=== PATIENT | female | born 1985 | race Caucasian/White ===

== ENCOUNTER 2018-12-11 13:47 | Emergency (ER) | payer BC ==
[2018-12-11 13:56] VITALS: BP 125/83; PULSE 76
--- NOTE | 2018-12-11 14:39 | EDM.PDOC ---
ED HPI GENERAL MEDICAL PROBLEM - General Chief Complaint: Chest Pain Stated Complaint: CHEST PAIN Time Seen by Provider: 12/11/18 13:58 Source of Information: Reports: Patient, RN Notes Reviewed History Limitations: Reports: No Limitations - History of Present Illness INITIAL COMMENTS - FREE TEXT/NARRATIVE: Patient is a 33-year-old female who presents to the ED for the evaluation of left-sided chest pain. The patient notes that this started about 1-1/2 hours ago. She notes this is kind of a dull ache, and rates this at a 5 out of 10. She denies any shortness of breath, and notes it does not get worse with taking deep breaths. She states that she was on vacation this last week, and the same thing happened to her on vacation on and off since last weekend. The patient notes that they had a car ride to [place], for which they were confined to car for long periods of time. She has not tried any Tylenol or ibuprofen for pain relief. She appreciated also that her stomach, and her last weekend. She notes she is not felt this sort of pain before ever. She denies any cardiac or lung history. She states her paternal grandfather of a heart attack in his late 50s. She does not note that the pain radiates. She denies any sort of shoulder injuries. She is not a smoker, and is not on control. Left Chest Pain Score (Numeric/FACES): 5 - Related Data Allergies Allergy/AdvReac Type Severity Reaction Status Date / Time cefaclor [From [facility]] Allergy Rash Verified 12/11/18 13:56 Home Meds: Home Meds . 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 (See Below) - Past Surgical History HEENT Surgical History: Reports: None Social & Family History - Family History Family Medical History: Noncontributory Cardiac: Reports: Other (See Below) : Reports: Other (See Below) Psychiatric: Reports: Bipolar - Tobacco Use Smoking Status *Q: Never Smoker - Caffeine Use Caffeine Use: Reports: None - Recreational Drug Use Recreational Drug Use: No ED ROS GENERAL - Review of Systems Review Of Systems: See Below Constitutional: Denies: Fever, Chills HEENT: Reports: No Symptoms Respiratory: Denies: Shortness of Breath, Cough Cardiovascular: Reports: Chest Pain (left sided chest discomfort). Denies: Blood Pressure Problem, Dyspnea on Exertion, Edema, Lightheadedness Endocrine: Reports: No Symptoms GI/Abdominal: Denies: Abdominal Pain, Constipation, Diarrhea, Nausea, Vomiting : Reports: No Symptoms Musculoskeletal: Reports: No Symptoms Skin: Reports: No Symptoms Neurological: Reports: No Symptoms Psychiatric: Reports: No Symptoms ED EXAM, GENERAL - Physical Exam Exam: See Below Exam Limited By: No Limitations General Appearance: Alert, WD/WN, No Apparent Distress Eye Exam: Bilateral Eye: EOMI, Normal Inspection, PERRL Throat/Mouth: Normal Inspection, Normal Lips, Normal Teeth, Normal Gums, Normal Oropharynx, Normal Voice, No Airway Compromise Head: Atraumatic Neck: Normal Inspection Respiratory/Chest: No Respiratory Distress, Lungs Clear, Normal Breath Sounds, No Accessory Muscle Use, Chest Non-Tender Cardiovascular: Normal Peripheral Pulses, Regular Rate, Rhythm, No Murmur GI/Abdominal: Normal Bowel Sounds, Soft, Non-Tender, No Distention, No Mass Extremities: Normal Inspection, Normal Capillary Refill Neurological: Alert, Oriented, Normal Cognition, No Motor/Sensory Deficits Psychiatric: Normal Affect, Normal Mood Skin Exam: Warm, Dry, Intact, Normal Color, No Rash EKG INTERPRETATION EKG Date: 12/11/18 Time: 14:41 Rhythm: NSR (sinus arrhythmia) Rate (Beats/Min): 69 [place]: Normal P-Wave: Present QRS: Normal ST-T: Normal QT: Normal Comparison: NA - No Prior EKG EKG Interpretation Comments: No acute ischemic changes, reviewed with Dr. Martinez Course - Vital Signs Last Recorded V/S: Last Vital Signs Temp 98.6 F 12/11/18 13:52 Pulse 76 12/11/18 13:52 Resp 18 12/11/18 13:52 BP 125/83 12/11/18 13:52 Pulse Ox 99 12/11/18 13:52 - Orders/Labs/Meds Orders: Active Orders 24 hr Category Date Time Status EKG Documentation Completion [RC] STAT Care 12/11/18 14:30 Ordered Chest 2V [CR] Stat Exams 12/11/18 14:30 Ordered Labs: Laboratory Tests 12/11/18 12/11/18 12/11/18 Range/Units 14:00 14:00 14:00 WBC 5.40 (3.98-10.04) K/mm3 RBC 4.13 (3.98-5.22) M/mm3 Hgb 11.5 (11.2-15.7) gm/dl Hct 34.8 (34.1-44.9) % MCV 84.3 (79.4-94.8) fl MCH 27.8 (25.6-32.2) pg MCHC 33.0 (32.2-35.5) g/dl RDW Std Deviation 39.8 (36.4-46.3) fL Plt Count 229 (182-369) K/mm3 MPV 10.2 (9.4-12.3) fl Neutrophils % (Manual) 59 (40-60) % Band Neutrophils % 0 (0-10) % Lymphocytes % (Manual) 31 (20-40) % Atypical Lymphs % 0 % Monocytes % (Manual) 7 (2-10) % Eosinophils % (Manual) 3 (0.7-5.8) % Basophils % (Manual) 0 L (0.1-1.2) Platelet Estimate Adequate RBC Morph Comment Normal D-Dimer, Quantitative 0.30 (0.19-0.50) mg/L Sodium 139 (136-145) mEq/L Potassium 4.1 (3.5-5.1) mEq/L Chloride 105 (98-107) mEq/L Carbon Dioxide 24 (21-32) mEq/L Anion Gap 14.1 (5-15) BUN 16 (7-18) mg/dL Creatinine 0.6 (0.55-1.02) mg/dL Est Cr Clr Drug Dosing 120.00 mL/min Estimated GFR (MDRD) > 60 (>60) mL/min BUN/Creatinine Ratio 26.7 H (14-18) Glucose 88 (74-106) mg/dL Calcium 8.8 (8.5-10.1) mg/dL Magnesium 1.9 (1.8-2.4) mg/dl Total Bilirubin 0.3 (0.2-1.0) mg/dL AST 16 (15-37) U/L ALT 17 (14-59) U/L Alkaline Phosphatase 60 (46-116) U/L Troponin I < 0.017 (0.00-0.056) ng/mL Total Protein 7.7 (6.4-8.2) g/dl Albumin 3.8 (3.4-5.0) g/dl Globulin 3.9 gm/dL Albumin/Globulin Ratio 1.0 (1-2) HCG, Qual (NEGATIVE) 12/11/18 Range/Units 14:00 WBC (3.98-10.04) K/mm3 RBC (3.98-5.22) M/mm3 Hgb (11.2-15.7) gm/dl Hct (34.1-44.9) % MCV (79.4-94.8) fl MCH (25.6-32.2) pg MCHC (32.2-35.5) g/dl RDW Std Deviation (36.4-46.3) fL Plt Count (182-369) K/mm3 MPV (9.4-12.3) fl Neutrophils % (Manual) (40-60) % Band Neutrophils % (0-10) % Lymphocytes % (Manual) (20-40) % Atypical Lymphs % % Monocytes % (Manual) (2-10) % Eosinophils % (Manual) (0.7-5.8) % Basophils % (Manual) (0.1-1.2) Platelet Estimate RBC Morph Comment D-Dimer, Quantitative (0.19-0.50) mg/L Sodium (136-145) mEq/L Potassium (3.5-5.1) mEq/L Chloride (98-107) mEq/L Carbon Dioxide (21-32) mEq/L Anion Gap (5-15) BUN (7-18) mg/dL Creatinine (0.55-1.02) mg/dL Est Cr Clr Drug Dosing mL/min Estimated GFR (MDRD) (>60) mL/min BUN/Creatinine Ratio (14-18) Glucose (74-106) mg/dL Calcium (8.5-10.1) mg/dL Magnesium (1.8-2.4) mg/dl Total Bilirubin (0.2-1.0) mg/dL AST (15-37) U/L ALT (14-59) U/L Alkaline Phosphatase (46-116) U/L Troponin I (0.00-0.056) ng/mL Total Protein (6.4-8.2) g/dl Albumin (3.4-5.0) g/dl Globulin gm/dL Albumin/Globulin Ratio (1-2) HCG, Qual Negative (NEGATIVE) - Re-Assessments/Exams Free Text/Narrative Re-Assessment/Exam: 12/11/18 14:42 Patient presents to the ED for evaluation of nondescript left-sided chest discomfort. Although there is very low likelihood of any sort of cardiac etiology, I did order EKG, chest x-ray, d-dimer, troponin, CBC, CMP, magnesium, and coags for initial management. 12/11/18 15:21 EKG is within normal limits, hCG is negative, d-dimer is negative, troponin is negative, CBC is within normal limits, metabolic panel is within normal limits. At this time it is looking as if her pain is more musculoskeletal in nature. If chest x-ray is normal, will send her home with general recommendations. 12/11/18 15:54 Chest x-ray is done, and demonstrate no acute consolidation or other abnormalities. Official radiology read is pending. X-rays were reviewed by myself and Dr. Martinez. Departure - Departure Time of Disposition: 15:55 Disposition: Home, Self-Care 01 Condition: Fair Clinical Impression: Left-sided chest wall pain Instructions: Chest Wall Pain, [id number] Referrals: PCP,None [Primary Care Provider] - Forms: ED Department Discharge Additional Instructions: You have been seen in the ER today regarding her left-sided chest pain. Your EKG, chest x-ray, and laboratory evaluation were within normal limits. You are not suffering from a heart attack, and you do not have any sort of blood clot in your lung today. Your chest wall pain may likely be due to musculoskeletal strain in nature, please take 600 mg ibuprofen or 500 mg Tylenol every 6 hours as needed for further pain relief. Do not exceed 4000 mg Tylenol or 3200 mg Tylenol in a 24- hour time span. Please return to the ED at any time if your symptoms should change or worsen. - My Orders Last 24 Hours: My Active Orders 12/11/18 14:30 EKG Documentation Completion [RC] STAT Chest 2V [CR] Stat - Assessment/Plan Last 24 Hours: My Active Orders 12/11/18 14:30 EKG Documentation Completion [RC] STAT Chest 2V [CR] Stat
--- NOTE | 2018-12-11 16:53 | CR ---
Chest: PA and lateral views of the chest were obtained. Comparison: No prior chest x-ray is available. Mild scoliosis is seen. Heart size and mediastinum are normal. Lungs are clear with no acute parenchymal change. Impression: 1. Scoliosis. 2. Nothing acute is appreciated on two-view chest x-ray. Diagnostic code #2
== END 2018-12-11 16:18 | disposition home or self-care (01) ==
LOC: JD.ED 13:47
DX: R07.89 Other chest pain (principal); Z88.1 Allergy status to other antibiotic agents
CPT/HCPCS: 36415; 71046; 71046-26; 80053; 83735; 84484; 84703; 85007; 85027; 85379; 93005; 93010; 99283; 99285-25

== ENCOUNTER 2019-10-28 13:58 | Inpatient (IN) | payer BC ==
[2019-10-28] MEDS ORDERED: Ondansetron 4 MG/2 ML SDV IVPUSH PRN (14:54)
[2019-10-28] MEDS ORDERED: Calcium Carbonate 500 MG Tab.Chew PO PRN (14:54)
[2019-10-28] MEDS ORDERED: Sodium Chloride 0.9% 10 ML Syringe FLUSH PRN (14:54)
[2019-10-28] MEDS ORDERED: Lidocaine 1% 50 ML MDV INJECT ONE (14:54)
[2019-10-28] MEDS ORDERED: Nalbuphine 10 MG/ML Syringe IVPUSH PRN (14:54)
[2019-10-28] MEDS ORDERED: Acetaminophen 325 MG Tab PO PRN (14:54)
[2019-10-28] MEDS ORDERED: Lactated Ringers 1,000 ML IV SCH (15:00)
[2019-10-28] MEDS ORDERED: Oxytocin/Lactated Ringers 10 UNIT/1,000 ML BAG IV SCH ×2 (15:00→17:00)
[2019-10-28] MEDS ORDERED: Ampicillin 2 GM AdvVial IV ONE (15:10)
[2019-10-28] MEDS ORDERED: Sodium Chloride 0.9% 100 ML ONE (15:11)
[2019-10-28] MEDS ORDERED: Ampicillin 2 GM in Sodium Chloride 0.9% 100 ML IV ONE (15:30)
--- NOTE | 2019-10-28 15:49 | PCM.LDHP ---
L&D History of Present Illness - General Date of Service: 10/28/19 Admit Problem/Dx: Patient Status Order with Admit Dx/Problem 10/28/19 14:08 Patient Status [ADT] Routine 10/28/19 14:54 Patient Status [ADT] Routine Admission Diagnosis/Problem Admission Diagnosis/Problem Source of Information: Patient History Limitations: Reports: No Limitations - History of Present Illness Introduction:: 34-year-old -0-0-6 MARYLOU 10/17/2019 patient at estimated gestational age of 41 weeks and 4 days presented to labor and delivery complaining of contractions on and off since 2130 hrs. last night. No history of gush of fluid or leaking of membranes. Recent ultrasound estimated weight at 9 pounds 9 ounces, 12/01/2013 patient had a 9 pound 8 ounce delivery 01/23/2019 a 9 pound 5 ounce delivery Paternal grandfather and maternal grandfather have history of heart disease, sister with a history of nephrectomy, father has history of bipolar disorder. 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 Mother from colon cancer. No history of genetic abnormalities in the family. 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 Yvrose and GC probe negative. LMP MARYLOU 10/20/2019 initial ultrasound at 9 weeks 6 days 10/17/2019. 08/17/2019 hemoglobin/hematocrit 10.7/32.6, platelets 184,000, 1 hour OB glucose screen 87 RPR nonreactive. 09/28/2019 GBS positive. Plan labor and delivery. Amniotomy performed at 1530 hrs. clear fluid. Cervix was 2 to 3 cm dilated, 20% effaced soft posterior cephalic presentation -1 to -2 station Improves with: Reports: None Worsens with: Reports: None Associated Symptoms: Reports: N - Related Data Allergies/Adverse Reactions: Allergies Allergy/AdvReac Type Severity Reaction Status Date / Time cefaclor [From [facility]] Allergy Rash Verified 12/11/18 13:56 Home Medications: Home Meds . 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) - Past Surgical History HEENT Surgical History: Reports: None Social & Family History - Family History Family Medical History: Noncontributory Cardiac: Reports: Other (See Below) : Reports: Other (See Below) Psychiatric: Reports: Bipolar - Caffeine Use Caffeine Use: Reports: None H&P Review of Systems - Review of Systems: Review Of Systems: See Below General: Reports: No Symptoms HEENT: Reports: No Symptoms Pulmonary: Reports: No Symptoms Cardiovascular: Reports: No Symptoms Gastrointestinal: Reports: No Symptoms Genitourinary: Reports: No Symptoms Musculoskeletal: Reports: No Symptoms Skin: Reports: No Symptoms Psychiatric: Reports: No Symptoms Neurological: Reports: No Symptoms Hematologic/Lymphatic: Reports: No Symptoms Immunologic: Reports: No Symptoms L&D Exam - Exam Exam: See Below - OB Specific Fundal Height In cm: 42 Contraction Intensity: Mild to Moderate Movement: Active Heart Tones: Present Heart Tones per Min: 140 Heart Rate (FHR) Variability: Moderate (6-25 bmp) Presentation: Vertex - Jamil Score Jamil Score Cervix Position: Posterior Jamil Score Consistency: Soft Jamil Score Effacement: 0-30% Jamil Score Dilation: 1-2 cm Jamil Score Infant's Station: -2 Jamil Score Total: 4 - Exam General: Alert, Oriented HEENT: Conjunctiva Clear, Mucosa Moist & [place] Neck: Supple, Trachea Midline Lungs: Clear to Auscultation, Normal Respiratory Effort Cardiovascular: Regular Rate, Regular Rhythm GI/Abdominal Exam: Normal Bowel Sounds, Soft, Non-Tender, Other (Gravid uterus) Genitourinary: Normal external exam Extremities: Normal Inspection, Non-Tender, No Pedal Edema, Normal Capillary Refill Skin: Warm, Dry, Intact Psychiatric: Alert, Normal Affect, Normal Mood - Patient Data Lab Results Last 24 hrs: Laboratory Results - last 24 hr 10/28/19 Range/Units 15:12 WBC 7.39 (3.98-10.04) K/mm3 RBC 3.88 L (3.98-5.22) M/mm3 Hgb 11.6 (11.2-15.7) gm/dl Hct 35.1 (34.1-44.9) % MCV 90.5 (79.4-94.8) fl MCH 29.9 (25.6-32.2) pg MCHC 33.0 (32.2-35.5) g/dl RDW Std Deviation 44.5 (36.4-46.3) fL Plt Count 153 L (182-369) K/mm3 MPV 9.5 (9.4-12.3) fl Neut % (Auto) 74.2 H (34.0-71.1) % Lymph % (Auto) 18.7 L (19.3-51.7) % [place] % (Auto) 6.6 (4.7-12.5) % Eos % (Auto) 0.1 L (0.7-5.8) Baso % (Auto) 0.1 (0.1-1.2) % Neut # (Auto) 5.48 (1.56-6.13) K/mm3 Lymph # (Auto) 1.38 (1.18-3.74) K/mm3 [place] # (Auto) 0.49 H (0.24-0.36) K/mm3 Eos # (Auto) 0.01 L (0.04-0.36) K/mm3 Baso # (Auto) 0.01 (0.01-0.08) K/mm3 Result Diagrams: 10/28/19 15:12 - Problem List (1) 41 weeks gestation of SNOMED Code(s): 13321431 ICD Code: Z3A.41 - 41 WEEKS GESTATION OF Status: Acute Current Visit: Yes (2) Grand multipara in labor in third trimester SNOMED Code(s): 264013674, 497741584 ICD Code: O09.43 - SUPRVSN OF W GRAND MULTIPARITY, THIRD TRIMESTER Status: Acute Current Visit: Yes (3) GBS carrier SNOMED Code(s): 0747938869119 ICD Code: Z22.330 - CARRIER OF GROUP B STREPTOCOCCUS Status: Acute Current Visit: No Problem List Initiated/Reviewed/Updated: No Orders Last 24hrs: Active Orders 24 hr Category Date Time Status Patient Status [ADT] Routine ADT 10/28/19 14:54 Active Activity as Tolerated [RC] PFP Care 10/28/19 14:54 Active Communication Order [RC] ASDIRECTED Care 10/28/19 14:54 Active Heart Tones [RC] ASDIRECTED Care 10/28/19 14:55 Active Non Stress Test [RC] PER UNIT ROUTINE Care 10/28/19 14:08 Active Notify Provider [RC] PFP Care 10/28/19 14:54 Active Notify Provider [RC] PRN Care 10/28/19 14:54 Active Peripheral IV Care [RC] . DIRECTED Care 10/28/19 14:55 Active Vital Signs [RC] PER UNIT ROUTINE Care 10/28/19 14:08 Active Regular Diet [DIET] Diet 10/28/19 Dinner Active CORONAVIRUS COVID-19 RAPID [MOLEC] Stat Lab 10/28/19 15:03 Received RAPID PLASMA REAGIN,RPR [CHEM] Routine Lab 10/28/19 15:12 Received TYPE AND SCREEN [BBK] Stat Lab 10/28/19 15:12 Received Acetaminophen [TylenoL] Med 10/28/19 14:54 Active 650 mg PO Q4H PRN Ampicillin 1 gm Med 10/28/19 19:30 Active Sodium Chloride 0.9% [Normal Saline] 100 ml IV Q4H Ampicillin 2 gm Med 10/28/19 15:30 Active Sodium Chloride 0.9% [Normal Saline] 100 ml IV ONETIME Calcium Carbonate [Tums] Med 10/28/19 14:54 Active 1,000 mg PO Q2H PRN Lactated Ringers [Ringers, Lactated] 1,000 ml Med 10/28/19 15:00 Active IV ASDIRECTED Nalbuphine [Nubain] Med 10/28/19 14:54 Active 10 mg IVPUSH Q2H PRN Ondansetron [Zofran] Med 10/28/19 14:54 Active 4 mg IVPUSH Q4H PRN Oxytocin/Lactated Ringers [Pitocin in LR 10 Units/1,000 Med 10/28/19 15:00 Active ML] 10 unit in 1,000 ml IV .CONTINUOUS Sodium Chloride 0.9% [Saline Flush] Med 10/28/19 14:54 Active 10 ml FLUSH ASDIRECTED PRN Electronic Heart Tones Ext w TOCO [WOMSER] Ot 10/28/19 14:54 Ordered Routine Electronic Heart Tones Internal [WOMSER] Per Unit Ot 10/28/19 14:54 Ordered Routine Peripheral IV Insertion Adult [OM.PC] Routine Ot 10/28/19 14:54 Ordered Resuscitation Status Routine Resus Stat 10/28/19 14:08 Ordered Medication Orders Acetaminophen (Tylenol) 650 mg PO Q4H PRN PRN Reason: Pain (Mild 1-3) and fever Calcium Carbonate/Glycine (Tums) 1,000 mg PO Q2H PRN PRN Reason: Indigestion Lactated Ringer's (Ringers, Lactated) 1,000 mls @ 100 mls/hr IV ASDIRECTED ROC Ampicillin Sodium 2 gm/ Sodium (Chloride) 100 mls @ 200 mls/hr IV ONETIME ONE Stop: 10/28/19 15:59 Last Admin: 10/28/19 15:25 Dose: 200 mls/hr Documented by: KELLCOL Ampicillin Sodium 1 gm/ Sodium (Chloride) 100 mls @ 200 mls/hr IV Q4H ROC Oxytocin/Lactated Ringer's (Pitocin In Lr 10 Units/1,000 Ml) 10 unit in 1,000 mls @ 500 mls/hr IV .CONTINUOUS ROC Nalbuphine HCl (Nubain) 10 mg IVPUSH Q2H PRN PRN Reason: Pain Ondansetron HCl (Zofran) 4 mg IVPUSH Q4H PRN PRN Reason: Nausea/Vomiting Sodium Chloride (Saline Flush) 10 ml FLUSH ASDIRECTED PRN PRN Reason: Keep Vein Open Assessment/Plan Comment:: BC, type and screen, COVID rapid test ordered. (No symptoms of COVID) In labor and delivery.
[2019-10-28] MEDS: Ampicillin 1 GM in Sodium Chloride 0.9% 100 ML IV SCH (19:25)
--- NOTE | 2019-10-28 20:41 | PCM.SN.2 ---
- Free Text/Narrative Note: Cervix 4-5 cm, 70 %effaced , soft mid-postition, vertex -2 Cat I FHR Oxytocin at 8 miu/min
--- NOTE | 2019-10-28 23:43 | PCM.DEL ---
L & D Note - General Info Date of Service: 10/28/19 Mother's Due Date: 10/17/19 - Delivery Note Labor: Spontaneous, Augmented by ARM, Augmented by Oxytocin Delivery Outcome: Livebirth (Male liveborn 10/28/2019 at [address] hours HCAI over no episiotomy under no anesthesia, male, Apgars 8/9, nuchal cord x1 reduced over the head) Infant Delivery Method: Spontaneous Vaginal Delivery-Single Delivery Mode: Spontaneous Presentation: Left Occiput Anterior (CHAI) Nuchal Cord: Present (Reduced over the head) Prep: Povidone-Iodine (Betadine Anesthesia Type: None Episiotomy Type: None Laceration: None Placenta: Intact, Spontaneous (10/28/2019 at 2330 hrs. intact central cord insertion spontaneous delivery discarded) Cord: 3 Vessels Estimated Blood Loss: 250 Resuscitation Needed: No [place]: Suctioned, Bulb Syringe, Stimulated, Warmed, [place] Used, Warmer Used Provider: Gilberto Hernandez Score 1 min: 8 Score 5 min: 9 Induction Criteria - Augmentation Estimated Pelvis: Reports: Adequate Weight Estimated:: Reports: LGA Estimated Weight if LGA: 9 lb 9 oz (Delivery weight 3950g/8 pounds 11.3 ounces) Reassuring Monitoring Strip: Yes Absence of Tachy Systole: Yes - General Info Date of Service: 10/28/19 Functional Status: Reports: Pain Controlled - Review of Systems General: Reports: No Symptoms HEENT: Reports: No Symptoms Pulmonary: Reports: No Symptoms Cardiovascular: Reports: No Symptoms Gastrointestinal: Reports: No Symptoms Genitourinary: Reports: No Symptoms Musculoskeletal: Reports: No Symptoms Skin: Reports: No Symptoms Neurological: Reports: No Symptoms Psychiatric: Reports: No Symptoms - Patient Data Vitals - Most Recent: Last Vital Signs Temp 97.3 F 10/28/19 14:15 Pulse 92 10/28/19 14:15 Resp 14 10/28/19 14:15 BP 121/73 10/28/19 14:15 Pulse Ox 100 10/28/19 14:15 Weight - Most Recent: 223 lb 12.8 oz I&O - Last 24 Hours: Intake & Output 10/28/19 10/28/19 10/29/19 14:59 22:59 06:59 Intake Total 100 Balance 100 Lab Results Last 24 Hours: Laboratory Results - last 24 hr 10/28/19 10/28/19 10/28/19 Range/Units 15:03 15:12 15:12 WBC 7.39 (3.98-10.04) K/mm3 RBC 3.88 L (3.98-5.22) M/mm3 Hgb 11.6 (11.2-15.7) gm/dl Hct 35.1 (34.1-44.9) % MCV 90.5 (79.4-94.8) fl MCH 29.9 (25.6-32.2) pg MCHC 33.0 (32.2-35.5) g/dl RDW Std Deviation 44.5 (36.4-46.3) fL Plt Count 153 L (182-369) K/mm3 MPV 9.5 (9.4-12.3) fl Neut % (Auto) 74.2 H (34.0-71.1) % Lymph % (Auto) 18.7 L (19.3-51.7) % [place] % (Auto) 6.6 (4.7-12.5) % Eos % (Auto) 0.1 L (0.7-5.8) Baso % (Auto) 0.1 (0.1-1.2) % Neut # (Auto) 5.48 (1.56-6.13) K/mm3 Lymph # (Auto) 1.38 (1.18-3.74) K/mm3 [place] # (Auto) 0.49 H (0.24-0.36) K/mm3 Eos # (Auto) 0.01 L (0.04-0.36) K/mm3 Baso # (Auto) 0.01 (0.01-0.08) K/mm3 RPR Non-reactive (NONREACTIVE) SARS CoV-2 RNA Rapid EDWIN Negative (NEGATIVE) Blood Type Gel Antibody Screen 10/28/19 Range/Units 15:12 WBC (3.98-10.04) K/mm3 RBC (3.98-5.22) M/mm3 Hgb (11.2-15.7) gm/dl Hct (34.1-44.9) % MCV (79.4-94.8) fl MCH (25.6-32.2) pg MCHC (32.2-35.5) g/dl RDW Std Deviation (36.4-46.3) fL Plt Count (182-369) K/mm3 MPV (9.4-12.3) fl Neut % (Auto) (34.0-71.1) % Lymph % (Auto) (19.3-51.7) % [place] % (Auto) (4.7-12.5) % Eos % (Auto) (0.7-5.8) Baso % (Auto) (0.1-1.2) % Neut # (Auto) (1.56-6.13) K/mm3 Lymph # (Auto) (1.18-3.74) K/mm3 [place] # (Auto) (0.24-0.36) K/mm3 Eos # (Auto) (0.04-0.36) K/mm3 Baso # (Auto) (0.01-0.08) K/mm3 RPR (NONREACTIVE) SARS CoV-2 RNA Rapid EDWIN (NEGATIVE) Blood Type A POSITIVE Gel Antibody Screen Negative Med Orders - Current: Current Medications Acetaminophen (Tylenol) 650 mg PO Q4H PRN PRN Reason: Pain (Mild 1-3) and fever Calcium Carbonate/Glycine (Tums) 1,000 mg PO Q2H PRN PRN Reason: Indigestion Lactated Ringer's (Ringers, Lactated) 1,000 mls @ 100 mls/hr IV ASDIRECTED ROC Ampicillin Sodium 1 gm/ Sodium (Chloride) 100 mls @ 200 mls/hr IV Q4H ROC Last Admin: 10/28/19 19:25 Dose: 200 mls/hr Documented by: Oxytocin/Lactated Ringer's (Pitocin In Lr 10 Units/1,000 Ml) 10 unit in 1,000 mls @ 500 mls/hr IV .CONTINUOUS ROC Oxytocin/Lactated Ringer's (Pitocin In Lr 10 Units/1,000 Ml) 10 unit in 1,000 mls @ 12 mls/hr IV TITRATE ROC; Protocol Last Titration: 10/28/19 21:10 Dose: 12 munits/min, 72 mls/hr Documented by: Nalbuphine HCl (Nubain) 10 mg IVPUSH Q2H PRN PRN Reason: Pain Ondansetron HCl (Zofran) 4 mg IVPUSH Q4H PRN PRN Reason: Nausea/Vomiting Sodium Chloride (Saline Flush) 10 ml FLUSH ASDIRECTED PRN PRN Reason: Keep Vein Open Discontinued Medications Ampicillin Sodium (Ampicillin) Confirm Administered Dose 2 gm IV .STK-MED ONE Stop: 10/28/19 15:11 Last Admin: 10/28/19 18:53 Dose: Not Given Documented by: Ampicillin Sodium 2 gm/ Sodium (Chloride) 100 mls @ 200 mls/hr IV ONETIME ONE Stop: 10/28/19 15:59 Last Admin: 10/28/19 15:25 Dose: 200 mls/hr Documented by: Sodium Chloride (Normal Saline) Confirm Administered Dose 100 mls @ as directed .ROUTE .STK-MED ONE Stop: 10/28/19 15:12 Last Admin: 10/28/19 18:53 Dose: Not Given Documented by: Lidocaine HCl (Xylocaine 1%) 20 ml INJECT ONETIME ONE Stop: 10/28/19 14:55 - Exam General: Alert, Oriented HEENT: Pupils Equal, Mucous Membr. Moist/[place] Neck: Supple Lungs: Clear to Auscultation, Normal Respiratory Effort Cardiovascular: Regular Rate, Regular Rhythm GI/Abdominal Exam: Normal Bowel Sounds, Soft, Non-Tender (Female) Exam: Normal External Exam Extremities: Normal Inspection, Non-Tender, No Pedal Edema, Normal Capillary Refill Skin: Warm, Dry, Intact Wound/Incisions: Healing Well Neurological: No New Focal Deficit Psy/Mental Status: Alert, Normal Affect, Normal Mood - Problem List & Annotations (1) 41 weeks gestation of SNOMED Code(s): 04095683 Code(s): Z3A.41 - 41 WEEKS GESTATION OF Status: Acute Current Visit: Yes (2) Grand multipara in labor in third trimester SNOMED Code(s): 491819625, 929166822 Code(s): O09.43 - SUPRVSN OF W GRAND MULTIPARITY, THIRD TRIMESTER Status: Acute Current Visit: Yes (3) GBS carrier SNOMED Code(s): 3537617053934 Code(s): Z22.330 - CARRIER OF GROUP B STREPTOCOCCUS Status: Acute Current Visit: No (4) Labor and delivery complicated by cord around neck, with compression, not applicable or unspecified SNOMED Code(s): 566086176 Code(s): O69.1XX0 - LABOR AND DELIVERY COMP BY CORD AROUND NECK, W COMPRSN, UNSP Status: Acute Current Visit: Yes (5) Encounter for full-term uncomplicated delivery SNOMED Code(s): 910381346 Code(s): O80 - ENCOUNTER FOR FULL-TERM UNCOMPLICATED DELIVERY Status: Acute Current Visit: Yes (6) Encounter for full-term uncomplicated delivery SNOMED Code(s): 144364593 Code(s): O80 - ENCOUNTER FOR FULL-TERM UNCOMPLICATED DELIVERY Status: Acute Current Visit: No - Problem List Review Problem List Initiated/Reviewed/Updated: No - My Orders Last 24 Hours: My Active Orders 10/28/19 14:08 Resuscitation Status Routine 10/28/19 14:54 Patient Status [ADT] Routine Activity as Tolerated [RC] PFP Communication Order [RC] ASDIRECTED Notify Provider [RC] PFP Notify Provider [RC] PRN Acetaminophen [TylenoL] 650 mg PO Q4H PRN Calcium Carbonate [Tums] 1,000 mg PO Q2H PRN Nalbuphine [Nubain] 10 mg IVPUSH Q2H PRN Ondansetron [Zofran] 4 mg IVPUSH Q4H PRN Sodium Chloride 0.9% [Saline Flush] 10 ml FLUSH ASDIRECTED PRN Electronic Heart Tones Ext w TOCO [WOMSER] Routine Electronic Heart Tones Internal [WOMSER] Per Unit Routine Peripheral IV Insertion Adult [OM.PC] Routine 10/28/19 14:55 Peripheral IV Care [RC] Q2HR 10/28/19 15:00 Lactated Ringers [Ringers, Lactated] 1,000 ml IV ASDIRECTED Oxytocin/Lactated Ringers [Pitocin in LR 10 Units/1,000 ML] 10 unit in 1,000 ml IV .CONTINUOUS 10/28/19 16:46 Communication Order [RC] ASDIRECTED Notify Provider [RC] ASDIRECTED 10/28/19 Dinner Regular Diet [DIET] Oxytocin/Lactated Ringers [Pitocin in LR 10 Units/1,000 ML] 10 unit in 1,000 ml IV TITRATE 10/28/19 19:30 Ampicillin 1 gm Sodium Chloride 0.9% [Normal Saline] 100 ml IV Q4H - Plan Plan:: BC, type and screen, COVID rapid test ordered. (No symptoms of COVID) In labor and delivery.
[2019-10-29] MEDS ORDERED: Acetaminophen 325 MG Tab PO PRN (00:01)
[2019-10-29] MEDS ORDERED: Benzocaine/Menthol 20%-0.5% Spray 56 GM Canister TOP PRN (00:01)
[2019-10-29] MEDS ORDERED: Docusate Sodium 100 MG Cap PO PRN (00:01)
[2019-10-29] MEDS ORDERED: Witch Hazel Medicated Pads 40/Jar TOP PRN (00:01)
[2019-10-29] MEDS ORDERED: Ibuprofen 600 MG Tab PO PRN (00:01)
[2019-10-29] MEDS: Ampicillin 1 GM in Sodium Chloride 0.9% 100 ML IV SCH (00:38)
--- NOTE | 2019-10-29 14:50 | PCM.SN.2 ---
- Free Text/Narrative Note: Patient is afebrile. No heavy vaginal bleeding uterus involuting normally no chest complaints no cough no difficulty breathing no leg cramping patient stable probably home tomorrow morning.
--- NOTE | 2019-10-30 06:10 | PCM.DCSUM1 ---
Discharge Summary - Hospital Course Free Text/Narrative:: [place] [facility] L/D Delivery Note Patient Name: CHANG AMAYA Date of : 85 Patient Status: Inpatient Attending Provider: Gilberto Hernandez Date: 10/28/19 23:38 Initialization Date: 10/28/19 23:38 L & D Note - General Info Date of Service: 10/28/19 Mother's Due Date: 10/17/19 - Delivery Note Labor: Spontaneous, Augmented by ARM, Augmented by Oxytocin Delivery Outcome: Livebirth (Male liveborn 10/28/2019 at 43198 hours CHAI over no episiotomy under no anesthesia, male, Apgars 8/9, nuchal cord x1 reduced over the head) Infant Delivery Method: Spontaneous Vaginal Delivery-Single Delivery Mode: Spontaneous Presentation: Left Occiput Anterior (CHAI) Nuchal Cord: Present (Reduced over the head) Prep: Povidone-Iodine (Betadine Anesthesia Type: None Episiotomy Type: None Laceration: None Placenta: Intact, Spontaneous (10/28/2019 at 2330 hrs. intact central cord insertion spontaneous delivery discarded) Cord: 3 Vessels Estimated Blood Loss: 250 Resuscitation Needed: No [place]: Suctioned, Bulb Syringe, Stimulated, Warmed, [place] Used, Warmer Used Provider: Gilberto Hernandez Score 1 min: 8 Score 5 min: 9 Induction Criteria - Augmentation Estimated Pelvis: Reports: Adequate Weight Estimated:: Reports: LGA Estimated Weight if LGA: 9 lb 9 oz (Delivery weight 3950g/8 pounds 11.3 ounces) Reassuring Monitoring Strip: Yes Absence of Tachy Systole: Yes - General Info Date of Service: 10/28/19 Functional Status: Reports: Pain Controlled - Review of Systems General: Reports: No Symptoms HEENT: Reports: No Symptoms Pulmonary: Reports: No Symptoms Cardiovascular: Reports: No Symptoms Gastrointestinal: Reports: No Symptoms Genitourinary: Reports: No Symptoms Musculoskeletal: Reports: No Symptoms Skin: Reports: No Symptoms Neurological: Reports: No Symptoms Psychiatric: Reports: No Symptoms - Patient Data Vitals - Most Recent: Last Vital Signs Temp 97.3 F 10/28/19 14:15 Pulse 92 10/28/19 14:15 Resp 14 10/28/19 14:15 BP 121/73 10/28/19 14:15 Pulse Ox 100 10/28/19 14:15 Weight - Most Recent: 223 lb 12.8 oz I&O - Last 24 Hours: Intake & Output 10/28/19 10/28/19 10/29/19 14:59 22:59 06:59 Intake Total 100 Balance 100 Lab Results Last 24 Hours: Laboratory Results - last 24 hr 10/28/19 10/28/19 10/28/19 Range/Units 15:03 15:12 15:12 WBC 7.39 (3.98-10.04) K/mm3 RBC 3.88 L (3.98-5.22) M/mm3 Hgb 11.6 (11.2-15.7) gm/dl Hct 35.1 (34.1-44.9) % MCV 90.5 (79.4-94.8) fl MCH 29.9 (25.6-32.2) pg MCHC 33.0 (32.2-35.5) g/dl RDW Std Deviation 44.5 (36.4-46.3) fL Plt Count 153 L (182-369) K/mm3 MPV 9.5 (9.4-12.3) fl Neut % (Auto) 74.2 H (34.0-71.1) % Lymph % (Auto) 18.7 L (19.3-51.7) % Clark % (Auto) 6.6 (4.7-12.5) % Eos % (Auto) 0.1 L (0.7-5.8) Baso % (Auto) 0.1 (0.1-1.2) % Neut # (Auto) 5.48 (1.56-6.13) K/mm3 Lymph # (Auto) 1.38 (1.18-3.74) K/mm3 Clark # (Auto) 0.49 H (0.24-0.36) K/mm3 Eos # (Auto) 0.01 L (0.04-0.36) K/mm3 Baso # (Auto) 0.01 (0.01-0.08) K/mm3 RPR Non-reactive (NONREACTIVE) SARS CoV-2 RNA Rapid EDWIN Negative (NEGATIVE) Blood Type Gel Antibody Screen 10/28/19 Range/Units 15:12 WBC (3.98-10.04) K/mm3 RBC (3.98-5.22) M/mm3 Hgb (11.2-15.7) gm/dl Hct (34.1-44.9) % MCV (79.4-94.8) fl MCH (25.6-32.2) pg MCHC (32.2-35.5) g/dl RDW Std Deviation (36.4-46.3) fL Plt Count (182-369) K/mm3 MPV (9.4-12.3) fl Neut % (Auto) (34.0-71.1) % Lymph % (Auto) (19.3-51.7) % Clark % (Auto) (4.7-12.5) % Eos % (Auto) (0.7-5.8) Baso % (Auto) (0.1-1.2) % Neut # (Auto) (1.56-6.13) K/mm3 Lymph # (Auto) (1.18-3.74) K/mm3 Clark # (Auto) (0.24-0.36) K/mm3 Eos # (Auto) (0.04-0.36) K/mm3 Baso # (Auto) (0.01-0.08) K/mm3 RPR (NONREACTIVE) SARS CoV-2 RNA Rapid EDWIN (NEGATIVE) Blood Type A POSITIVE Gel Antibody Screen Negative Med Orders - Current: Current Medications Acetaminophen (Tylenol) 650 mg PO Q4H PRN PRN Reason: Pain (Mild 1-3) and fever Calcium Carbonate/Glycine (Tums) 1,000 mg PO Q2H PRN PRN Reason: Indigestion Lactated Ringer's (Ringers, Lactated) 1,000 mls @ 100 mls/hr IV ASDIRECTED ROC Ampicillin Sodium 1 gm/ Sodium (Chloride) 100 mls @ 200 mls/hr IV Q4H [facility] Last Admin: 10/28/19 19:25 Dose: 200 mls/hr Documented by: Oxytocin/Lactated Ringer's (Pitocin In Lr 10 Units/1,000 Ml) 10 unit in 1,000 mls @ 500 mls/hr IV .CONTINUOUS ROC Oxytocin/Lactated Ringer's (Pitocin In Lr 10 Units/1,000 Ml) 10 unit in 1,000 mls @ 12 mls/hr IV TITRATE ROC; Protocol Last Titration: 10/28/19 21:10 Dose: 12 munits/min, 72 mls/hr Documented by: Nalbuphine HCl (Nubain) 10 mg IVPUSH Q2H PRN PRN Reason: Pain Ondansetron HCl (Zofran) 4 mg IVPUSH Q4H PRN PRN Reason: Nausea/Vomiting Sodium Chloride (Saline Flush) 10 ml FLUSH ASDIRECTED PRN PRN Reason: Keep Vein Open Discontinued Medications Ampicillin Sodium (Ampicillin) Confirm Administered Dose 2 gm IV .STK-MED ONE Stop: 10/28/19 15:11 Last Admin: 10/28/19 18:53 Dose: Not Given Documented by: Ampicillin Sodium 2 gm/ Sodium (Chloride) 100 mls @ 200 mls/hr IV ONETIME ONE Stop: 10/28/19 15:59 Last Admin: 10/28/19 15:25 Dose: 200 mls/hr Documented by: Sodium Chloride (Normal Saline) Confirm Administered Dose 100 mls @ as directed .ROUTE .STK-MED ONE Stop: 10/28/19 15:12 Last Admin: 10/28/19 18:53 Dose: Not Given Documented by: Lidocaine HCl (Xylocaine 1%) 20 ml INJECT ONETIME ONE Stop: 10/28/19 14:55 - Exam General: Alert, Oriented HEENT: Pupils Equal, Mucous Membr. Moist/[place] Neck: Supple Lungs: Clear to Auscultation, Normal Respiratory Effort Cardiovascular: Regular Rate, Regular Rhythm GI/Abdominal Exam: Normal Bowel Sounds, Soft, Non-Tender (Female) Exam: Normal External Exam Extremities: Normal Inspection, Non-Tender, No Pedal Edema, Normal Capillary Refill Skin: Warm, Dry, Intact Wound/Incisions: Healing Well Neurological: No New Focal Deficit Psy/Mental Status: Alert, Normal Affect, Normal Mood - Problem List & Annotations (1) 41 weeks gestation of SNOMED Code(s): 24516211 Code(s): Z3A.41 - 41 WEEKS GESTATION OF Status: Acute Current Visit: Yes (2) Grand multipara in labor in third trimester SNOMED Code(s): 057392970, 700515402 Code(s): O09.43 - SUPRVSN OF W GRAND MULTIPARITY, THIRD TRIMESTER Status: Acute Current Visit: Yes (3) GBS carrier SNOMED Code(s): 1217460612153 Code(s): Z22.330 - CARRIER OF GROUP B STREPTOCOCCUS Status: Acute Current Visit: No (4) Labor and delivery complicated by cord around neck, with compression, not applicable or unspecified SNOMED Code(s): 288424978 Code(s): O69.1XX0 - LABOR AND DELIVERY COMP BY CORD AROUND NECK, W COMPRSN, UNSP Status: Acute Current Visit: Yes (5) Encounter for full-term uncomplicated delivery SNOMED Code(s): 506681199 Code(s): O80 - ENCOUNTER FOR FULL-TERM UNCOMPLICATED DELIVERY Status: Acute Current Visit: Yes (6) Encounter for full-term uncomplicated delivery SNOMED Code(s): 244418957 Code(s): O80 - ENCOUNTER FOR FULL-TERM UNCOMPLICATED DELIVERY Status: Acute Current Visit: No - Problem List Review Problem List Initiated/Reviewed/Updated: No - My Orders Last 24 Hours: My Active Orders 10/28/19 14:08 Resuscitation Status Routine 10/28/19 14:54 Patient Status [ADT] Routine Activity as Tolerated [RC] PFP Communication Order [RC] ASDIRECTED Notify Provider [RC] PFP Notify Provider [RC] PRN Acetaminophen [TylenoL] 650 mg PO Q4H PRN Calcium Carbonate [Tums] 1,000 mg PO Q2H PRN Nalbuphine [Nubain] 10 mg IVPUSH Q2H PRN Ondansetron [Zofran] 4 mg IVPUSH Q4H PRN Sodium Chloride 0.9% [Saline Flush] 10 ml FLUSH ASDIRECTED PRN Electronic Heart Tones Ext w TOCO [WOMSER] Routine Electronic Heart Tones Internal [WOMSER] Per Unit Routine Peripheral IV Insertion Adult [OM.PC] Routine 10/28/19 14:55 Peripheral IV Care [RC] Q2HR 10/28/19 15:00 Lactated Ringers [Ringers, Lactated] 1,000 ml IV ASDIRECTED Oxytocin/Lactated Ringers [Pitocin in LR 10 Units/1,000 ML] 10 unit in 1,000 ml IV .CONTINUOUS 10/28/19 16:46 Communication Order [RC] ASDIRECTED Notify Provider [RC] ASDIRECTED 10/28/19 Dinner Regular Diet [DIET] Oxytocin/Lactated Ringers [Pitocin in LR 10 Units/1,000 ML] 10 unit in 1,000 ml IV TITRATE 10/28/19 19:30 Ampicillin 1 gm Sodium Chloride 0.9% [Normal Saline] 100 ml IV Q4H - Plan Plan:: BC, type and screen, COVID rapid test ordered. (No symptoms of COVID) In labor and delivery. HPI Initial Comments: [place] [facility] L/D Delivery Note Patient Name: CHANG AMAYA Date of : 85 Patient Status: Inpatient Attending Provider: Gilberto Hernandez Date: 10/28/19 23:38 Initialization Date: 10/28/19 23:38 L & D Note - General Info Date of Service: 10/28/19 Mother's Due Date: 10/17/19 - Delivery Note Labor: Spontaneous, Augmented by ARM, Augmented by Oxytocin Delivery Outcome: Livebirth (Male liveborn 10/28/2019 at 04891 hours CHAI over no episiotomy under no anesthesia, male, Apgars 8/9, nuchal cord x1 reduced over the head) Delivery Method: Spontaneous Vaginal Delivery-Single Delivery Mode: Spontaneous Presentation: Left Occiput Anterior (CHAI) Nuchal Cord: Present (Reduced over the head) Prep: Povidone-Iodine (Betadine Anesthesia Type: None Episiotomy Type: None Laceration: None Placenta: Intact, Spontaneous (10/28/2019 at 2330 hrs. intact central cord insertion spontaneous delivery discarded) Cord: 3 Vessels Estimated Blood Loss: 250 Resuscitation Needed: No [place]: Suctioned, Bulb Syringe, Stimulated, Warmed, [place] Used, Warmer Used Provider: Gilberto Hernandez Score 1 min: 8 Score 5 min: 9 Induction Criteria - Augmentation Estimated Pelvis: Reports: Adequate Weight Estimated:: Reports: LGA Estimated Weight if LGA: 9 lb 9 oz (Delivery weight 3950g/8 pounds 11.3 ounces) Reassuring Monitoring Strip: Yes Absence of Tachy Systole: Yes - General Info Date of Service: 10/28/19 Functional Status: Reports: Pain Controlled - Review of Systems General: Reports: No Symptoms HEENT: Reports: No Symptoms Pulmonary: Reports: No Symptoms Cardiovascular: Reports: No Symptoms Gastrointestinal: Reports: No Symptoms Genitourinary: Reports: No Symptoms Musculoskeletal: Reports: No Symptoms Skin: Reports: No Symptoms Neurological: Reports: No Symptoms Psychiatric: Reports: No Symptoms - Patient Data Vitals - Most Recent: Last Vital Signs Temp 97.3 F 10/28/19 14:15 Pulse 92 10/28/19 14:15 Resp 14 10/28/19 14:15 BP 121/73 10/28/19 14:15 Pulse Ox 100 10/28/19 14:15 Weight - Most Recent: 223 lb 12.8 oz I&O - Last 24 Hours: Intake & Output 10/28/19 10/28/19 10/29/19 14:59 22:59 06:59 Intake Total 100 Balance 100 Lab Results Last 24 Hours: Laboratory Results - last 24 hr 10/28/19 10/28/19 10/28/19 Range/Units 15:03 15:12 15:12 WBC 7.39 (3.98-10.04) K/mm3 RBC 3.88 L (3.98-5.22) M/mm3 Hgb 11.6 (11.2-15.7) gm/dl Hct 35.1 (34.1-44.9) % MCV 90.5 (79.4-94.8) fl MCH 29.9 (25.6-32.2) pg MCHC 33.0 (32.2-35.5) g/dl RDW Std Deviation 44.5 (36.4-46.3) fL Plt Count 153 L (182-369) K/mm3 MPV 9.5 (9.4-12.3) fl Neut % (Auto) 74.2 H (34.0-71.1) % Lymph % (Auto) 18.7 L (19.3-51.7) % [place] % (Auto) 6.6 (4.7-12.5) % Eos % (Auto) 0.1 L (0.7-5.8) Baso % (Auto) 0.1 (0.1-1.2) % Neut # (Auto) 5.48 (1.56-6.13) K/mm3 Lymph # (Auto) 1.38 (1.18-3.74) K/mm3 [place] # (Auto) 0.49 H (0.24-0.36) K/mm3 Eos # (Auto) 0.01 L (0.04-0.36) K/mm3 Baso # (Auto) 0.01 (0.01-0.08) K/mm3 RPR Non-reactive (NONREACTIVE) SARS CoV-2 RNA Rapid EDWIN Negative (NEGATIVE) Blood Type Gel Antibody Screen 10/28/19 Range/Units 15:12 WBC (3.98-10.04) K/mm3 RBC (3.98-5.22) M/mm3 Hgb (11.2-15.7) gm/dl Hct (34.1-44.9) % MCV (79.4-94.8) fl MCH (25.6-32.2) pg MCHC (32.2-35.5) g/dl RDW Std Deviation (36.4-46.3) fL Plt Count (182-369) K/mm3 MPV (9.4-12.3) fl Neut % (Auto) (34.0-71.1) % Lymph % (Auto) (19.3-51.7) % [place] % (Auto) (4.7-12.5) % Eos % (Auto) (0.7-5.8) Baso % (Auto) (0.1-1.2) % Neut # (Auto) (1.56-6.13) K/mm3 Lymph # (Auto) (1.18-3.74) K/mm3 [place] # (Auto) (0.24-0.36) K/mm3 Eos # (Auto) (0.04-0.36) K/mm3 Baso # (Auto) (0.01-0.08) K/mm3 RPR (NONREACTIVE) SARS CoV-2 RNA Rapid EDWIN (NEGATIVE) Blood Type A POSITIVE Gel Antibody Screen Negative Med Orders - Current: Current Medications Acetaminophen (Tylenol) 650 mg PO Q4H PRN PRN Reason: Pain (Mild 1-3) and fever Calcium Carbonate/Glycine (Tums) 1,000 mg PO Q2H PRN PRN Reason: Indigestion Lactated Ringer's (Ringers, Lactated) 1,000 mls @ 100 mls/hr IV ASDIRECTED ROC Ampicillin Sodium 1 gm/ Sodium (Chloride) 100 mls @ 200 mls/hr IV Q4H ROC Last Admin: 10/28/19 19:25 Dose: 200 mls/hr Documented by: Oxytocin/Lactated Ringer's (Pitocin In Lr 10 Units/1,000 Ml) 10 unit in 1,000 mls @ 500 mls/hr IV .CONTINUOUS ROC Oxytocin/Lactated Ringer's (Pitocin In Lr 10 Units/1,000 Ml) 10 unit in 1,000 mls @ 12 mls/hr IV TITRATE ROC; Protocol Last Titration: 10/28/19 21:10 Dose: 12 munits/min, 72 mls/hr Documented by: Nalbuphine HCl (Nubain) 10 mg IVPUSH Q2H PRN PRN Reason: Pain Ondansetron HCl (Zofran) 4 mg IVPUSH Q4H PRN PRN Reason: Nausea/Vomiting Sodium Chloride (Saline Flush) 10 ml FLUSH ASDIRECTED PRN PRN Reason: Keep Vein Open Discontinued Medications Ampicillin Sodium (Ampicillin) Confirm Administered Dose 2 gm IV .STK-MED ONE Stop: 10/28/19 15:11 Last Admin: 10/28/19 18:53 Dose: Not Given Documented by: Ampicillin Sodium 2 gm/ Sodium (Chloride) 100 mls @ 200 mls/hr IV ONETIME ONE Stop: 10/28/19 15:59 Last Admin: 10/28/19 15:25 Dose: 200 mls/hr Documented by: Sodium Chloride (Normal Saline) Confirm Administered Dose 100 mls @ as directed .ROUTE .STK-MED ONE Stop: 10/28/19 15:12 Last Admin: 10/28/19 18:53 Dose: Not Given Documented by: Lidocaine HCl (Xylocaine 1%) 20 ml INJECT ONETIME ONE Stop: 10/28/19 14:55 - Exam General: Alert, Oriented HEENT: Pupils Equal, Mucous Membr. Moist/[place] Neck: Supple Lungs: Clear to Auscultation, Normal Respiratory Effort Cardiovascular: Regular Rate, Regular Rhythm GI/Abdominal Exam: Normal Bowel Sounds, Soft, Non-Tender (Female) Exam: Normal External Exam Extremities: Normal Inspection, Non-Tender, No Pedal Edema, Normal Capillary Refill Skin: Warm, Dry, Intact Wound/Incisions: Healing Well Neurological: No New Focal Deficit Psy/Mental Status: Alert, Normal Affect, Normal Mood - Problem List & Annotations (1) 41 weeks gestation of SNOMED Code(s): 98429341 Code(s): Z3A.41 - 41 WEEKS GESTATION OF Status: Acute Current Visit: Yes (2) Grand multipara in labor in third trimester SNOMED Code(s): 278711491, 819983985 Code(s): O09.43 - SUPRVSN OF W GRAND MULTIPARITY, THIRD TRIMESTER Status: Acute Current Visit: Yes (3) GBS carrier SNOMED Code(s): 5639497513077 Code(s): Z22.330 - CARRIER OF GROUP B STREPTOCOCCUS Status: Acute Current Visit: No (4) Labor and delivery complicated by cord around neck, with compression, not applicable or unspecified SNOMED Code(s): 532220312 Code(s): O69.1XX0 - LABOR AND DELIVERY COMP BY CORD AROUND NECK, W COMPRSN, UNSP Status: Acute Current Visit: Yes (5) Encounter for full-term uncomplicated delivery SNOMED Code(s): 189642323 Code(s): O80 - ENCOUNTER FOR FULL-TERM UNCOMPLICATED DELIVERY Status: Acute Current Visit: Yes (6) Encounter for full-term uncomplicated delivery SNOMED Code(s): 062148543 Code(s): O80 - ENCOUNTER FOR FULL-TERM UNCOMPLICATED DELIVERY Status: Acute Current Visit: No - Problem List Review Problem List Initiated/Reviewed/Updated: No - My Orders Last 24 Hours: My Active Orders 10/28/19 14:08 Resuscitation Status Routine 10/28/19 14:54 Patient Status [ADT] Routine Activity as Tolerated [RC] PFP Communication Order [RC] ASDIRECTED Notify Provider [RC] PFP Notify Provider [RC] PRN Acetaminophen [TylenoL] 650 mg PO Q4H PRN Calcium Carbonate [Tums] 1,000 mg PO Q2H PRN Nalbuphine [Nubain] 10 mg IVPUSH Q2H PRN Ondansetron [Zofran] 4 mg IVPUSH Q4H PRN Sodium Chloride 0.9% [Saline Flush] 10 ml FLUSH ASDIRECTED PRN Electronic Heart Tones Ext w TOCO [WOMSER] Routine Electronic Heart Tones Internal [WOMSER] Per Unit Routine Peripheral IV Insertion Adult [OM.PC] Routine 10/28/19 14:55 Peripheral IV Care [RC] Q2HR 10/28/19 15:00 Lactated Ringers [Ringers, Lactated] 1,000 ml IV ASDIRECTED Oxytocin/Lactated Ringers [Pitocin in LR 10 Units/1,000 ML] 10 unit in 1,000 ml IV .CONTINUOUS 10/28/19 16:46 Communication Order [RC] ASDIRECTED Notify Provider [RC] ASDIRECTED 10/28/19 Dinner Regular Diet [DIET] Oxytocin/Lactated Ringers [Pitocin in LR 10 Units/1,000 ML] 10 unit in 1,000 ml IV TITRATE 10/28/19 19:30 Ampicillin 1 gm Sodium Chloride 0.9% [Normal Saline] 100 ml IV Q4H - Plan Plan:: BC, type and screen, COVID rapid test ordered. (No symptoms of COVID) In labor and delivery. Brief History: [facility], [place], operated by [facility] . L/D Delivery Note. Patient Name: CHANG AMAYA [facility] Record Number: [id number]. Date of : [birth year]Patient Status: Inpatient. Attending Provider: Gilberto Hernandez Number: [id number]. Date: 10/28/19 23:38Initialization Date: 10/28/19 23:38. L & D Note. - General Info. Date of Service: 10/28/19. Mother's Due Date: 10/17/19. - Delivery Note. Labor: Spontaneous, Augmented by ARM, Augmented by Oxytocin. Delivery Outcome: Livebirth (Male liveborn 10/28/2019 at 60634 hours CHAI over no episiotomy under no anesthesia, male, Apgars 8/9, nuchal cord x1 reduced over the head). Delivery Method: Spontaneous Vaginal Delivery-Single. Infant Delivery Mode: Spontaneous. Presentation: Left Occiput Anterior (CHAI). Nuchal Cord: Present (Reduced over the head). Prep: Povidone-Iodine (Betadine. Anesthesia Type: None. Episiotomy Type: None. Laceration: None. Placenta: Intact, Spontaneous (10/28/2019 at 2330 hrs. intact central cord insertion spontaneous delivery discarded). Cord: 3 Vessels. Estimated Blood Loss: 250. Resuscitation Needed: No. [place]: Suctioned, Bulb Syringe, Stimulated, Warmed, [place] Used, Warmer Used. Provider: Gilberto Hernandez. Score 1 min: 8. Score 5 min: 9. Induction Criteria. - Augmentation. Estimated Pelvis: Reports: Adequate. Weight Estimated:: Reports: LGA. Estimated Weight if LGA: 9 lb 9 oz (Delivery weight 3950g/8 pounds 11.3 ounces). Reassuring Monitoring Strip: Yes. Absence of Tachy Systole: Yes. - General Info. Date of Service: 10/28/19. Functional Status: Reports: Pain Controlled. - Review of Systems. General: Reports: No Symptoms. HEENT: Reports: No Symptoms. Pulmonary: Reports: No Symptoms. Cardiovascular: Reports: No Symptoms. Gastrointestinal: Reports: No Symptoms. Genitourinary: Reports: No Symptoms. Musculoskeletal: Reports: No Symptoms. Skin: Reports: No Symptoms. Neurological: Reports: No Symptoms. Psychiatric: Reports: No Symptoms. - Patient Data. Vitals - Most Recent: Last Vital Signs. Temp 97.3 F 10/28/19 14:15. Pulse 92 10/28/19 14:15. Resp 14 10/28/19 14:15. BP 121/73 10/28/19 14:15. Pulse Ox 100 10/28/19 14:15. Weight - Most Recent: 223 lb 12.8 oz. I&O - Last 24 Hours: Intake & Output. 10/27/2008/. 14:5922:5906:59. Intake [id number]. [id number]. Lab Results Last 24 Hours: Laboratory Results - last 24 hr. 10/27/2008/Range/Units. 15:0315:1215:12. WBC 7.39 (3.98-10.04) K/mm3. RBC 3.88 L (3.98-5.22) M/mm3. Hgb 11.6 (11.2-15.7) gm/dl. Hct 35.1 (34.1-44.9) %. MCV 90.5 (79.4-94.8) fl. MCH 29.9 (25.6-32.2) pg. MCHC 33.0 (32.2-35.5) g/dl. RDW Std Deviation 44.5 (36.4-46.3) fL. Plt Count 153 L (182-369) K/mm3. MPV 9.5 (9.4-12.3) fl. Neut % (Auto) 74.2 H (34.0-71.1) %. Lymph % (Auto) 18.7 L (19.3-51.7) %. Clark % (Auto) 6.6 (4.7-12.5) %. Eos % (Auto) 0.1 L (0.7-5.8). Baso % (Auto) 0.1 (0.1-1.2) %. Neut # (Auto) 5.48 (1.56-6.13) K/mm3. Lymph # (Auto) 1.38 (1.18-3.74) K/mm3. Clark # (Auto) 0.49 H (0.24-0.36) K/mm3. Eos # (Auto) 0.01 L (0.04-0.36) K/mm3. Baso # (Auto) 0.01 (0.01-0.08) K/mm3. RPR Non-reactive (NONREACTIVE). SARS CoV-2 RNA Rapid EDWIN Negative (NEGATIVE). Blood Type. Gel Antibody Screen. 10/28/19Range/Un its. 15:12. WBC (3.98-10.04) K/mm3. RBC (3.98-5.22) M/mm3. Hgb (11.2-15.7) gm/dl. Hct (34.1-44.9) %. MCV (79.4-94.8) fl. MCH (25.6-32.2) pg. MCHC (32.2-35.5) g/dl. RDW Std Deviation (36.4-46.3) fL. Plt Count (182-369) K/mm3. MPV (9.4-12.3) fl. Neut % (Auto) (34.0-71.1) %. Lymph % (Auto) (19.3-51.7) %. Clark % (Auto) (4.7-12.5) %. Eos % (Auto) (0.7-5.8). Baso % (Auto) (0.1-1.2) %. Neut # (Auto) (1.56-6.13) K/mm3. Lymph # (Auto) (1.18- 3.74) K/mm3. Clark # (Auto) (0.24-0.36) K/mm3. Eos # (Auto) (0.04-0.36) K/mm3. Baso # (Auto) (0.01-0.08) K/mm3. RPR (NONREACTIVE). SARS CoV-2 RNA Rapid EDWIN (NEGATIVE). Blood Type A POSITIVE. Gel Antibody Screen Negative. Med Orders - Current: Current Medications. Acetaminophen (Tylenol) 650 mg PO Q4H PRN. PRN Reason: Pain (Mild 1-3) and fever. Calcium Carbonate/Glycine (Tums) 1,000 mg PO Q2H PRN. PRN Reason: Indigestion. Lactated Ringer's (Ringers, Lactated) 1,000 mls @ 100 mls/hr IV ASDIRECTED ROC. Ampicillin Sodium 1 gm/ Sodium (Chloride) 100 mls @ 200 mls/hr IV Q4H ROC. Last Admin: 10/28/19 19:25 Dose: 200 mls/hr. Documented by: Oxytocin/Lactated Ringer's (Pitocin In Lr 10 Units/1,000 Ml) 10 unit in 1,000 mls @ 500 mls/hr IV .CONTINUOUS ROC. Oxytocin/Lactated Ringer's (Pitocin In Lr 10 Units/1,000 Ml) 10 unit in 1,000 mls @ 12 mls/hr IV TITRATE ROC; Protocol. Last Titration: 10/28/19 21:10 Dose: 12 munits/min, 72 mls/hr. Documented by: Nalbuphine HCl (Nubain) 10 mg IVPUSH Q2H PRN. PRN Reason: Pain. Ondansetron HCl (Zofran) 4 mg IVPUSH Q4H PRN. PRN Reason: Nausea/Vomiting. Sodium Chloride (Saline Flush) 10 ml FLUSH ASDIRECTED PRN. PRN Reason: Keep Vein Open. Discontinued Medications. Ampicillin Sodium (Ampicillin) Confirm Administered Dose 2 gm IV .STK-MED ONE. Stop: 10/28/19 15:11. Last Admin: 10/28/19 18:53 Dose: Not Given. Documented by: Ampicillin Sodium 2 gm/ Sodium (Chloride) 100 mls @ 200 mls/hr IV ONETIME ONE. Stop: 10/28/19 15:59. Last Admin: 10/28/19 15:25 Dose: 200 mls/hr. Documented by: Sodium Chloride (Normal Saline) Confirm Administered Dose 100 mls @ as directed .ROUTE .STK-MED ONE. Stop: 10/28/19 15:12. Last Admin: 10/28/19 18:53 Dose: Not Given. Documented by: Lidocaine HCl (Xylocaine 1%) 20 ml INJECT ONETIME ONE. Stop: 10/28/19 14:55. - Exam. General: Alert, Oriented. HEENT: Pupils Equal, Mucous Membr. Moist/[place]. Neck: Supple. Lungs: Clear to Auscultation, Normal Respiratory Effort. Cardiovascular: Regular Rate, Regular Rhythm. GI/Abdominal Exam: Normal Bowel Sounds, Soft, Non-Tender. (Female) Exam: Normal External Exam. Extremities: Normal Inspection, Non-Tender, No Pedal Edema, Normal Capillary Refill. Skin: Warm, Dry, Intact. Wound/Incisions: Healing Well. Neurological: No New Focal Deficit. Psy/Mental Status: Alert, Normal Affect, Normal Mood. - Problem List & Annotations. (1) 41 weeks gestation of . SNOMED Code(s): 12910361. Code(s): Z3A.41 - 41 WEEKS GESTATION OF Status: Acute Current Visit: Yes. (2) Grand multipara in labor in third trimester. SNOMED Code(s): 231459117, 283598599. Code(s): O09.43 - SUPRVSN OF W GRAND MULTIPARITY, THIRD TRIMESTER Status: Acute Current Visit: Yes. (3) GBS carrier. SNOMED Code(s): 8128760391720. Code(s): Z22.330 - CARRIER OF GROUP B STREPTOCOCCUS Status: Acute Current Visit: No. (4) Labor and delivery complicated by cord around neck, with compression, not applicable or unspecified. SNOMED Code(s): 735473114. Code(s): O69.1XX0 - LABOR AND DELIVERY COMP BY CORD AROUND NECK, W COMPRSN, UNSP Status: Acute Current Visit: Yes. (5) Encounter for full-term uncomplicated delivery. SNOMED Code(s): 534162075. Code(s): O80 - ENCOUNTER FOR FULL-TERM UNCOMPLICATED DELIVERY Status: Acute Current Visit: Yes. (6) Encounter for full-term uncomplicated delivery. SNOMED Code(s): 069222051. Code(s): O80 - ENCOUNTER FOR FULL-TERM UNCOMPLICATED DELIVERY Status: Acute Current Visit: No. - Problem List Review. Problem List Initiated/Reviewed/Updated: No. - My Orders. Last 24 Hours: My Active Orders. 10/28/19 14:08. Resuscitation Status Routine. 10/28/19 14:54. Patient Status [ADT] Routine. Activity as Tolerated [RC] PFP. Communication Order [RC] ASDIRECTED. Notify Provider [RC] PFP. Notify Provider [RC] PRN. Acetaminophen [TylenoL] 650 mg PO Q4H PRN. Calcium Carbonate [Tums] 1,000 mg PO Q2H PRN. Nalbuphine [Nubain] 10 mg IVPUSH Q2H PRN. Ondansetron [Zofran] 4 mg IVPUSH Q4H PRN. Sodium Chloride 0.9% [Saline Flush] 10 ml FLUSH ASDIRECTED PRN. Electronic Heart Tones Ext w TOCO [WOMSER] Routine. Electronic Heart Tones Internal [WOMSER] Per Unit Routine. Peripheral IV Insertion Adult [OM.PC] Routine. 10/28/19 14:55. Peripheral IV Care [RC] Q2HR. 10/28/19 15:00. Lactated Ringers [Ringers, Lactated] 1,000 ml IV ASDIRECTED. Oxytocin/Lactated Ringers [Pitocin in LR 10 Units/1,000 ML] 10 unit in 1,000 ml IV .CONTINUOUS. 10/28/19 16:46. Communication Order [RC] ASDIRECTED. Notify Provider [RC] ASDIRECTED. 10/28/19 Dinner. Regular Diet [DIET]. Oxytocin/Lactated Ringers [Pitocin in LR 10 Units/1,000 ML] 10 unit in 1,000 ml IV TITRATE. 10/28/19 19:30. Ampicillin 1 gm Sodium Chloride 0.9% [Normal Saline] 100 ml IV Q4H. - Plan. Plan:: BC, type and screen, COVID rapid test ordered. (No symptoms of COVID). In labor and delivery. Diagnosis: Stroke: No - Discharge Data Discharge Date: 10/30/19 Discharge Disposition: Home, Self-Care 01 Condition: Good - Referral to Home Health Primary Care Physician: Gilberto Hernandez MD - Discharge Diagnosis/Problem(s) (1) 41 weeks gestation of SNOMED Code(s): 33821595 ICD Code: Z3A.41 - 41 WEEKS GESTATION OF Status: Acute Current Visit: Yes (2) Grand multipara in labor in third trimester SNOMED Code(s): 271384552, 255068186 ICD Code: O09.43 - SUPRVSN OF W GRAND MULTIPARITY, THIRD TRIMESTER Status: Acute Current Visit: Yes (3) GBS carrier SNOMED Code(s): 3929851800623 ICD Code: Z22.330 - CARRIER OF GROUP B STREPTOCOCCUS Status: Acute Current Visit: No (4) Labor and delivery complicated by cord around neck, with compression, not applicable or unspecified SNOMED Code(s): 974828440 ICD Code: O69.1XX0 - LABOR AND DELIVERY COMP BY CORD AROUND NECK, W COMPRSN, UNSP Status: Acute Current Visit: Yes (5) Encounter for full-term uncomplicated delivery SNOMED Code(s): 116025419 ICD Code: O80 - ENCOUNTER FOR FULL-TERM UNCOMPLICATED DELIVERY Status: Acute Current Visit: Yes - Patient Summary/Data Complications: None Consults: None Hospital Course: Uneventful - Patient Instructions Diet: Usual Diet as Tolerated Driving: Do Not Drive (2 days) Showering/Bathing: May Shower Notify Provider of: Fever, Increased Pain, Swelling and Redness, Drainage, Naus ea and/or Vomiting - Discharge Plan *PRESCRIPTION DRUG MONITORING PROGRAM REVIEWED*: Not Applicable *COPY OF PRESCRIPTION DRUG MONITORING REPORT IN PATIENT CHET: Not Applicable Home Medications: Home Meds Ascorbic Acid [Vitamin C] 500 mg PO TID 10/28/19 [History] Ferrous Sulfate [Iron] 325 mg PO TID 10/28/19 [History] Vits #93/Iron Fum/FA [ Formula Tablet] 1 each PO DAILY 10/28/19 [History] Acetaminophen [Tylenol] 650 mg PO Q6H PRN tablet 10/30/19 [Rx] Benzocaine/Menthol [Dermoplast Pain Relief [place]] 1 spray TOP ASDIRECTED PRN canister 10/30/19 [Rx] Docusate Sodium [Colace] 100 mg PO BID PRN cap 10/30/19 [Rx] Ibuprofen [Motrin] 600 mg PO Q6H PRN tablet 10/30/19 [Rx] lul Saldana [Tucks] 1 pad TOP ASDIRECTED PRN pad 10/30/19 [Rx] Referrals: Gilberto Hernandez MD [Primary Care Provider] - (Call today to make an appointment to see me on 08/09) - Discharge Summary/Plan Comment DC Time >30 min.: No - Patient Data Vitals - Most Recent: Last Vital Signs Temp 97.8 F 10/29/19 20:00 Pulse 53 L 10/30/19 03:31 Resp 16 10/30/19 03:31 BP 102/55 L 10/30/19 03:31 Pulse Ox 98 10/30/19 03:31 Weight - Most Recent: 223 lb 12.8 oz I&O - Last 24 hours: Intake & Output 10/29/19 10/29/19 10/30/19 14:59 22:59 06:59 Intake Total 840 Balance 840 Lab Results - Last 24 hrs: Laboratory Results - last 24 hr 10/29/19 Range/Units 05:43 WBC 11.72 H (3.98-10.04) K/mm3 RBC 3.73 L (3.98-5.22) M/mm3 Hgb 11.1 L (11.2-15.7) gm/dl Hct 33.8 L (34.1-44.9) % MCV 90.6 (79.4-94.8) fl MCH 29.8 (25.6-32.2) pg MCHC 32.8 (32.2-35.5) g/dl RDW Std Deviation 44.5 (36.4-46.3) fL Plt Count 158 L (182-369) K/mm3 MPV 9.9 (9.4-12.3) fl Neut % (Auto) 84.8 H (34.0-71.1) % Lymph % (Auto) 7.6 L (19.3-51.7) % Clark % (Auto) 7.3 (4.7-12.5) % Eos % (Auto) 0 L (0.7-5.8) Baso % (Auto) 0.0 L (0.1-1.2) % Neut # (Auto) 9.95 H (1.56-6.13) K/mm3 Lymph # (Auto) 0.89 L (1.18-3.74) K/mm3 Clark # (Auto) 0.85 H (0.24-0.36) K/mm3 Eos # (Auto) 0.00 L (0.04-0.36) K/mm3 Baso # (Auto) 0.00 L (0.01-0.08) K/mm3 Manual Slide Review Abnormal smear Med Orders - Current: Current Medications Acetaminophen (Tylenol) 650 mg PO Q4H PRN PRN Reason: mild pain or fever Benzocaine/Menthol (Dermoplast Pain Relief [place]) 0 gm TOP ASDIRECTED PRN PRN Reason: Perineal Comfort Measure Last Admin: 10/29/19 00:56 Dose: 1 canister Documented by: Docusate Sodium (Colace) 100 mg PO BID PRN PRN Reason: Constipation Ibuprofen (Motrin) 600 mg PO Q4H PRN PRN Reason: Mild pain or fever Witch Senia (Tucks) 1 pad TOP ASDIRECTED PRN PRN Reason: Perineal Comfort Measure Last Admin: 10/29/19 00:56 Dose: 1 container Documented by: Discontinued Medications Acetaminophen (Tylenol) 650 mg PO Q4H PRN PRN Reason: Pain (Mild 1-3) and fever Ampicillin Sodium (Ampicillin) Confirm Administered Dose 2 gm IV .STK-MED ONE Stop: 10/28/19 15:11 Last Admin: 10/28/19 18:53 Dose: Not Given Documented by: Calcium Carbonate/Glycine (Tums) 1,000 mg PO Q2H PRN PRN Reason: Indigestion Lactated Ringer's (Ringers, Lactated) 1,000 mls @ 100 mls/hr IV ASDIRECTED ROC Ampicillin Sodium 2 gm/ Sodium (Chloride) 100 mls @ 200 mls/hr IV ONETIME ONE Stop: 10/28/19 15:59 Last Admin: 10/28/19 15:25 Dose: 200 mls/hr Documented by: Ampicillin Sodium 1 gm/ Sodium (Chloride) 100 mls @ 200 mls/hr IV Q4H ROC Last Admin: 10/29/19 00:38 Dose: Not Given Documented by: Oxytocin/Lactated Ringer's (Pitocin In Lr 10 Units/1,000 Ml) 10 unit in 1,000 mls @ 500 mls/hr IV .CONTINUOUS ROC Oxytocin/Lactated Ringer's (Pitocin In Lr 10 Units/1,000 Ml) 10 unit in 1,000 mls @ 12 mls/hr IV TITRATE ROC; Protocol Last Titration: 10/28/19 21:10 Dose: 12 munits/min, 72 mls/hr Documented by: Sodium Chloride (Normal Saline) Confirm Administered Dose 100 mls @ as directed .ROUTE .K-MED ONE Stop: 10/28/19 15:12 Last Admin: 10/28/19 18:53 Dose: Not Given Documented by: Lidocaine HCl (Xylocaine 1%) 20 ml INJECT ONETIME ONE Stop: 10/28/19 14:55 Last Admin: 10/29/19 00:38 Dose: Not Given Documented by: Nalbuphine HCl (Nubain) 10 mg IVPUSH Q2H PRN PRN Reason: Pain Ondansetron HCl (Zofran) 4 mg IVPUSH Q4H PRN PRN Reason: Nausea/Vomiting Sodium Chloride (Saline Flush) 10 ml FLUSH ASDIRECTED PRN PRN Reason: Keep Vein Open
[2019-10-30 11:14] VITALS: BP 134/75; PULSE 63
== END 2019-10-30 12:45 | disposition home or self-care (01) | DRG 560 ==
LOC: JD.OBCHECK 13:58 → JD.OB 13:59 → JD.OBCHECK 14:53 → JD.OB 14:54 → OBSVTOIN 23:19 → JD.MS 23:20 → JD.OB 23:21
PROVIDERS: ADMIT Obstetrics & Gynecology; ATTEND Obstetrics & Gynecology
PROC: 10E0XZZ Delivery of Products of Conception, External Approach (ICD-10-PCS; principal; 2019-10-28)
PROC: 10907ZC Drainage of Amniotic Fluid, Therapeutic from Products of Conception, Via Natural or Artificial Opening (ICD-10-PCS; 2019-10-28)
DX: O69.1XX0 Labor and delivery complicated by cord around neck, with compression, not applicable or unspecified (principal); Z37.0 Single live birth; Z3A.41 41 weeks gestation of pregnancy; Z20.828 Contact with and (suspected) exposure to other viral communicable diseases
CPT/HCPCS: 36415; 59025; 59409; 85025; 86592; 86850; 86900; 86901; A9270-GY; J0290; J2590; J7050; U0002

== ENCOUNTER 2021-12-11 22:26 | Inpatient (IN) | payer BC ==
[2021-12-11] MEDS ORDERED: Nalbuphine HCl 10 MG/ 1ML Amp IVPUSH PRN (23:07)
[2021-12-11] MEDS ORDERED: Methylergonovine 0.2 MG/1 ML Amp IM PRN (23:07)
[2021-12-11] MEDS ORDERED: Misoprostol 200 MCG Tab PO PRN (23:07)
[2021-12-11] MEDS ORDERED: Lactated Ringers 1,000 ML IV SCH (23:15)
[2021-12-11] MEDS ORDERED: Oxytocin/Lactated Ringers 10 UNIT/1,000 ML BAG IV SCH (23:15)
[2021-12-12] MEDS ORDERED: Benzocaine/Menthol 20%-0.5% Spray 78 GM Cannister TOP PRN (02:34)
[2021-12-12] MEDS ORDERED: Acetaminophen 325 MG Tab PO PRN (02:34)
[2021-12-12] MEDS ORDERED: Ibuprofen 600 MG Tab PO PRN (02:34)
[2021-12-12] MEDS ORDERED: Witch Hazel Medicated Pads 40/Jar TOP PRN (02:34)
[2021-12-13 12:30] VITALS: BP 115/75; PULSE 71
== END 2021-12-13 12:00 | disposition home or self-care (01) | DRG 560 ==
LOC: JD.OBCHECK 22:26 → JD.OB 23:00 → OBSVTOIN 12-12 01:10 → JD.OB 12-12 01:11
PROVIDERS: ADMIT Family Medicine; ATTEND Family Medicine
PROC: 10E0XZZ Delivery of Products of Conception, External Approach (ICD-10-PCS; principal; 2021-12-12)
PROC: 10907ZC Drainage of Amniotic Fluid, Therapeutic from Products of Conception, Via Natural or Artificial Opening (ICD-10-PCS; 2021-12-12)
DX: O48.0 Post-term pregnancy (principal); Z37.0 Single live birth; Z3A.41 41 weeks gestation of pregnancy; Z88.1 Allergy status to other antibiotic agents; O77.0 Labor and delivery complicated by meconium in amniotic fluid
CPT/HCPCS: 36415; 59025; 59409; 85025; 86592; 86850; 86900; 86901

== ENCOUNTER 2024-06-23 22:54 | Inpatient (IN) | payer BC ==
[2024-06-23] MEDS ORDERED: Sodium Chloride 0.9% 10 ML Syringe FLUSH PRN (23:24)
[2024-06-23] MEDS ORDERED: Lidocaine 1% 50 ML MDV INJECT PRN (23:24)
[2024-06-23] MEDS ORDERED: Acetaminophen 325 MG Tab PO PRN (23:24)
[2024-06-23] MEDS ORDERED: Nalbuphine 10 MG/1 ML Vial IVPUSH PRN (23:24)
[2024-06-23] MEDS ORDERED: Ondansetron 4 MG/2 ML SDV IVPUSH PRN (23:24)
[2024-06-23] MEDS ORDERED: Oxytocin/0.9 % Sodium Chloride 30 UNIT/500 ML BAG IV SCH (23:30)
[2024-06-23 23:49] LABS: BASOPHILS PERCENT AUTO 0.1 % (0.0-1.0); EOSINOPHILS ABSOLUTE AUTO 0.1 K/mm3 (0.0-0.4); EOSINOPHILS PERCENT AUTO 0.7 % (0.0-6.0); HEMATOCRIT 33.6 % (37.0-47.0); HEMOGLOBIN 11.3 gm/dl (12.0-16.0); IMMATURE GRAN ABSOLUTE AUTO 0.02 K/mm3 (0.00-0.05); IMMATURE GRAN PERCENT AUTO 0.3 % (0.0-0.4); LYMPHOCYTES ABSOLUTE AUTO 1.5 K/mm3 (1.0-4.8); LYMPHOCYTES PERCENT AUTO 21.7 % (24.0-44.0); MEAN CORPUSCULAR HEMOGLOBIN 30.2 pg (28.0-32.0); MEAN CORPUSCULAR HGB CONC 33.6 g/dl (32.0-36.0); MEAN CORPUSCULAR VOLUME 89.8 fl (83.0-99.0); MONOCYTES ABSOLUTE AUTO 0.5 K/mm3 (0.0-0.8); NEUTROPHILS ABSOLUTE AUTO 4.7 K/mm3 (1.8-7.7); NEUTROPHILS PERCENT AUTO 70.2 % (41.0-71.0); PLATELET COUNT,PLT 167 K/mm3 (150-400); RED BLOOD CELL COUNT 3.74 M/mm3 (4.10-5.30); WHITE BLOOD CELL COUNT,WBC 6.67 K/mm3 (3.9-11.3)
[2024-06-23] MEDS: Lactated Ringers 1,000 ML IV SCH (23:49)
[2024-06-23] MEDS: Penicillin G Potassium 5 MILLUNITS in Sodium Chloride 0.9% 100 ML IV ONE (23:49)
[2024-06-23] MEDS: Oxytocin/0.9 % Sodium Chloride 30 UNIT/500 ML BAG IV SCH (23:55)
[2024-06-24] MEDS: Penicillin G Potassium 2.5 MILLUNITS in Sodium Chloride 0.9% 100 ML IV SCH (03:55)
[2024-06-24] MEDS ORDERED: Succinylcholine 200 MG/10 ML MDV ONE (08:10)
[2024-06-24] MEDS ORDERED: propofoL 500 MG/50 ML 50 ML ONE (08:10)
[2024-06-24] MEDS ORDERED: Ondansetron 4 MG/2 ML SDV ONE ×2 (08:16→11:51)
[2024-06-24 09:15] LABS: PROTHROMBIN TIME 9.7 SECONDS (9.7-12.0)
[2024-06-24 09:17] LABS: INR < 0.93
[2024-06-24] MEDS ORDERED: Sodium Chloride 0.9% 10 ML Syringe FLUSH PRN ×2 (11:10→14:08)
[2024-06-24] MEDS ORDERED: Clindamycin Phosphate in D5W 900 MG in Premix Bag 1 BAG IV ONE (11:10)
[2024-06-24] MEDS ORDERED: Lactated Ringers 1,000 ML IV SCH (11:15)
[2024-06-24] MEDS: Azithromycin 500 MG in Sodium Chloride 0.9% 250 ML IV ONE (11:28)
[2024-06-24] MEDS: Citric Acid/Sodium Citrate Solution 30 ML Cup PO ONE (11:29)
[2024-06-24] MEDS: Metoclopramide 10 MG/2 ML SDV IVPUSH ONE (11:29)
[2024-06-24] MEDS ORDERED: fentaNYL 100 MCG/2 ML SDV ONE (11:31)
[2024-06-24] MEDS ORDERED: Morphine PF 10 MG/10 ML SDV ONE (11:32)
[2024-06-24] MEDS ORDERED: Phenylephrine 1% 10 MG/ML SDV ONE (11:49)
[2024-06-24] MEDS ORDERED: Tranexamic Acid 1,000 MG/10 ML Vial ONE (12:12)
[2024-06-24] MEDS ORDERED: Ketorolac 15 MG/ML SDV ONE (12:25)
[2024-06-24] MEDS ORDERED: diphenhydrAMINE 50 MG/ML SDV IVPUSH PRN (14:08)
[2024-06-24] MEDS ORDERED: oxyCODONE 5 MG Tab PO PRN (14:08)
[2024-06-24] MEDS ORDERED: ePHEDrine 50 MG/ML SDV IVPUSH PRN (14:08)
[2024-06-24] MEDS ORDERED: Naloxone 0.4 MG/ML SDV IVPUSH PRN (14:08)
[2024-06-24] MEDS ORDERED: Acetaminophen 325 MG Tab PO PRN (14:08)
[2024-06-24] MEDS: Dextrose 5%-Lactated Ringers 1,000 ML IV SCH (14:23)
[2024-06-24] MEDS: Ketorolac 30 MG/ML SDV IVPUSH SCH (19:19)
[2024-06-24] MEDS ORDERED: Sodium Chloride 0.9% 10 ML Syringe FLUSH SCH (21:00)
[2024-06-25 05:48] LABS: HEMATOCRIT 25.6 % (37.0-47.0); MEAN CORPUSCULAR HEMOGLOBIN 30.3 pg (28.0-32.0); MEAN CORPUSCULAR HGB CONC 33.6 g/dl (32.0-36.0); MEAN CORPUSCULAR VOLUME 90.1 fl (83.0-99.0); MEAN PLATELET VOLUME 10.6 fl (9.4-12.3); PLATELET COUNT,PLT 120 K/mm3 (150-400); RED BLOOD CELL COUNT 2.84 M/mm3 (4.10-5.30); WHITE BLOOD CELL COUNT,WBC 7.18 K/mm3 (3.9-11.3)
[2024-06-25 06:14] LABS: HEMOGLOBIN 8.6 gm/dl (12.0-16.0)
[2024-06-25] MEDS: Ibuprofen 600 MG Tab PO SCH (13:03)
[2024-06-25] MEDS: Docusate Sodium 100 MG Cap PO PRN (21:24)
[2024-06-26 22:44] VITALS: BP 104/86; PULSE 70
== END 2024-06-26 23:47 | disposition home or self-care (01) | DRG 540 ==
LOC: JD.OBCHECK 22:54 → JD.OB 22:59 → JD.OBCHECK 23:25 → JD.OB 23:25 → OBSVTOIN 06-24 12:06 → JD.OB 06-24 12:07
PROVIDERS: ADMIT Family Medicine; ATTEND Family Medicine
PROC: 3E033VJ Introduction of Other Hormone into Peripheral Vein, Percutaneous Approach (ICD-10-PCS; principal; 2024-06-24)
PROC: 10D00Z1 Extraction of Products of Conception, Low, Open Approach (ICD-10-PCS; principal; 2024-06-24)
PROC: 10907ZC Drainage of Amniotic Fluid, Therapeutic from Products of Conception, Via Natural or Artificial Opening (ICD-10-PCS; principal; 2024-06-24)
DX: O48.0 Post-term pregnancy (principal); O34.211 Maternal care for low transverse scar from previous cesarean delivery; D25.9 Leiomyoma of uterus, unspecified; O99.824 Streptococcus B carrier state complicating childbirth; Z3A.40 40 weeks gestation of pregnancy; Z37.0 Single live birth; Z79.899 Other long term (current) drug therapy
CPT/HCPCS: 36415; 59025; 76811; 76811-26; 85025; 85027; 85610; 85730; 86592; 86850; 86900; 86901; A9270-GY; J0330; J0456; J1885; J2274; J2371; J2405; J2540; J2704; J2765; J3010; J7120; J7121; J7999